=== PATIENT | male | born 1980 | race African-American/Black ===

== ENCOUNTER 2017-01-26 16:05 | Emergency (ER) | payer OTHER ==
[~2017-01-26 16:05] MED LIST: AUGM500T7 PO; CYCL-36 PO; HYDR12.56 PO; IBUP-238 PO; LORT7.5T3 PO; SOMA250T OR; Z.0.NO CURRENT MEDS
[2017-01-26 16:06] VITALS: BP 156/77; PULSE 84; RESP 20; TEMP 97.8; O2SAT 100
[2017-01-26] MEDS ORDERED: LISI20TA PO (18:18)
[2017-01-26] MEDS ORDERED: PROT40TA PO (18:23)
[2017-01-26 18:31] VITALS: BP 148/75; PULSE 89; RESP 18; O2SAT 98
[2017-01-26] MEDS ORDERED: SODIUM CHLOR 0.9% 1000 ML INJ 1,000 ML IV SCH (18:31)
--- NOTE | 2017-01-26 18:33 | PD ---
HPI Chief Complaint: GI Complaint Time Seen by Provider: 18:33 Travel History International Travel<30 days: No Contact w/Intl Traveler<30days: No Traveled to known affect area: No History of Present Illness HPI 36-year-old male with a history of hypertension, GERD presents to the emergency department for evaluation of worsening rectal pain for 2 months. 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 States that he saw Dr. Barker about one month ago for this complaint and was told that he had a fissure and would need surgery. States that he has not followed up with him since and has not scheduled any sort of procedure because of insurance constraints. States he was told this could become an abscess and he is worried this has occurred as the pain has worsened. The patient states that he has a sharp and throbbing pain at his rectum constantly. Pain is aggravated with bowel movements. States that he sometimes has bright red blood with bowel movements as well. States that today the pain significantly worsened and is now radiating to his perineum and testicles. He complains of nausea but no vomiting. He denies any fever, chills, chest pain, shortness of breath, abdominal pain, dysuria, diarrhea, constipation. Denies any prior abdominal surgeries. No other complaints. PFSH Past Medical History Asthma: Yes (CHILDHOOD) Cardiovascular Problems: Yes (HTN) Diminished Hearing: No Gastrointestinal Disorders: Yes Glaucoma: Yes (BOTH EYES) Past Surgical History Surgical History: No Previous Surgery Social History Alcohol Use: No Tobacco Use: Yes (ocassionally) Substance Use: No (pt denies) Allergies-Medications (Allergen,Severity, Reaction): Coded Allergies: Sulfa (Verified Allergy, Severe, rash, 01/26/17) Promethazine (Verified Allergy, Unknown, swelling, 01/26/17) Reported Meds & Prescriptions Reported Meds & Active Scripts Active Lortab (Hydrocodone-Acetaminophen) 5-325 Mg Tab 1 Tab PO Q6H PRN Lortab (Hydrocodone-Acetaminophen) 5-325 Mg Tab 1 Tab PO Q6H PRN Lidocaine Rectal 5 % Cream 1 Applic RECTAL DAILY PRN Anusol-Hc Supp (Hydrocortisone Supp) 25 Mg Supp 25 Mg RECTAL BID Anusol-Hc Rectal (Hydrocortisone Rectal) 2.5% Cream 1 Applic RECTAL Q6H PRN Reported Protonix (Pantoprazole Sodium) 40 Mg Tab 40 Mg PO DAILY Lisinopril-Hctz 20-12.5 Mg Tab 1 Tab PO DAILY Review of Systems Except as stated in HPI: all other systems reviewed are Neg Physical Exam Narrative GENERAL: Well-nourished and well-developed pleasant male patient in no acute distress but in a moderate amount of discomfort. SKIN: Warm and dry. HEAD: Normocephalic and atraumatic. EYES: No injection, drainage, or hyphema noted. PERRLA. EOMI. ENT: No nasal drainage noted. Oropharynx is clear. NECK: Supple and the trachea is midline. CARDIOVASCULAR: Regular rate and rhythm. RESPIRATORY: Breath sounds are equal bilaterally with no accessory muscle use, wheezing, rhonchi, or crackles. GASTROINTESTINAL: Abdomen is soft, non-tender, and nondistended. RECTAL EXAM: Difficult to perform as patient has severe pain in his rectum and anus. I did not see any external fissures or hemorrhoids on exam. I was able to perform a limited digital rectal exam extending only about 2 inches deep as the patient was experiencing severe pain. With this limited exam I did not palpate any masses, tracts or stool. Performed in the presence of Meri WONG. MUSCULOSKELETAL: No obvious deformities, swelling, cyanosis, or ecchymosis is present throughout the upper and lower extremities. Patient has full range of motion without any signs of neurovascular compromise. NEUROLOGICAL: Awake, alert, and oriented. Normal speech and gait. Cranial nerves are grossly intact. Data Data Last Documented VS Vital Signs Date Time Temp Pulse Resp B/P Pulse Ox O2 Delivery O2 Flow Rate FiO2 01/26/17 18:34 17 99 Room Air 01/26/17 18:31 89 148/75 01/26/17 16:06 97.8 Orders Complete Blood Count With Diff (01/26/17 18:31) Comprehensive Metabolic Panel (01/26/17 18:31) Lipase (01/26/17 18:31) Prothrombin Time / Inr (Pt) (01/26/17 18:31) Act Partial Throm Time (Ptt) (01/26/17 18:31) Urinalysis - C+S If Indicated (01/26/17 18:31) Ct Abd/Pel W Iv Contrast(Rout) (01/26/17 18:31) Iv Access Insert/Monitor (01/26/17 18:31) Ecg Monitoring (01/26/17 18:31) Oximetry (01/26/17 18:31) Morphine Inj (Morphine Inj) (01/26/17 18:45) Ondansetron Inj (Zofran Inj) (01/26/17 18:45) Sodium Chlor 0.9% 1000 Ml Inj (Ns 1000 M (01/26/17 18:31) Sodium Chloride 0.9% Flush (Ns Flush) (01/26/17 18:45) Oral Contrast - Adult (01/26/17 18:38) Diatrizoate Liq ( Gastroview Liq) (01/26/17 18:47) Diatrizoate Liq ( Gastrojayleen Liq) (01/26/17 18:48) Iohexol 350 Inj (Omnipaque 350 Inj) (01/26/17 20:09) Oxycodone-Acetamin 5-325 Mg (Percocet (01/26/17 21:00) Labs Laboratory Tests Test 01/26/17 01/26/17 18:40 19:40 White Blood Count 11.6 TH/MM3 Red Blood Count 4.94 MIL/MM3 Hemoglobin 14.3 GM/DL Hematocrit 43.6 % Mean Corpuscular Volume 88.4 FL Mean Corpuscular Hemoglobin 28.9 PG Mean Corpuscular Hemoglobin 32.7 % Concent Red Cell Distribution Width 14.7 % Platelet Count 237 TH/MM3 Mean Platelet Volume 8.2 FL Neutrophils (%) (Auto) 65.1 % Lymphocytes (%) (Auto) 26.8 % Monocytes (%) (Auto) 6.9 % Eosinophils (%) (Auto) 0.7 % Basophils (%) (Auto) 0.5 % Neutrophils # (Auto) 7.5 TH/MM3 Lymphocytes # (Auto) 3.1 TH/MM3 Monocytes # (Auto) 0.8 TH/MM3 Eosinophils # (Auto) 0.1 TH/MM3 Basophils # (Auto) 0.1 TH/MM3 CBC Comment DIFF FINAL Differential Comment Prothrombin Time 11.0 SEC Prothromb Time International 1.0 RATIO Ratio Activated Partial 29.4 SEC Thromboplast Time Sodium Level 143 MEQ/L Potassium Level 3.5 MEQ/L Chloride Level 105 MEQ/L Carbon Dioxide Level 30.8 MEQ/L Anion Gap 7 MEQ/L Blood Urea Nitrogen 10 MG/DL Creatinine 1.16 MG/DL Estimat Glomerular Filtration 87 ML/MIN Rate Random Glucose 60 MG/DL Calcium Level 9.4 MG/DL Total Bilirubin 0.6 MG/DL Aspartate Amino Transf 9 U/L (AST/SGOT) Alanine Aminotransferase 20 U/L (ALT/SGPT) Alkaline Phosphatase 70 U/L Total Protein 7.4 GM/DL Albumin 4.2 GM/DL Lipase 845 U/L Urine Color YELLOW Urine Turbidity CLEAR Urine pH 5.5 Urine Specific [place] 1.020 Urine Protein NEG mg/dL Urine Glucose (UA) NEG mg/dL Urine Ketones NEG mg/dL Urine Occult Blood NEG Urine Nitrite NEG Urine Bilirubin NEG Urine Urobilinogen LESS THAN 2.0 MG/DL Urine Leukocyte Esterase NEG Urine RBC LESS THAN 1 /hpf Urine WBC 1 /hpf Microscopic Urinalysis Comment CULT NOT INDICATED MDM Medical Decision Making Medical Screen Exam Complete: Yes Emergency Medical Condition: Yes Differential Diagnosis Fissure versus abscess versus proctitis versus proctosigmoiditis versus crohn's versus other Narrative Course 36-year-old male with a history of rectal pain for 2 months that has been worsening. Patient is afebrile, vital signs are stable. Patient is in a moderate amount of pain. There is some concern for fissure or abscess. IV access was obtained, labs been drawn and sent. CT of the abdomen and pelvis with IV and oral contrast has been ordered and is pending. Patient is administered morphine 4 mg IV and Zofran 4 mg IV. CBC shows slightly elevated white blood count of 11.6, otherwise unremarkable. CMP is unremarkable. Lipase is elevated at 845. The patient has no left upper quadrant pain and is tolerating oral intake without any difficulty. I don't think this represents a true pancreatitis. Coags are unremarkable. Urinalysis unremarkable. CT of the abdomen and pelvis shows mild nonspecific wall thickening of the lower rectum. No perceptible acute inflammatory changes. Nonspecific distention of the stomach and proximal duodenum also without perceptible inflammatory changes or mass. I discussed all findings with the patient. He will be discharged home with prescriptions for Anusol suppository and cream as well as topical lidocaine and some oral pain medication. I discussed with him proper bowel regimens to ensure that he is not experiencing any constipation. I discussed with the patient that he will need to follow-up with a batch tank controller for further evaluation of these nonspecific findings. Patient verbalizes understanding and agreement with treatment plan. I discussed the case with my attending physician Dr. Reddy who is aware of the patients history, physical examination findings, and treatment plan. 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 If you're experiencing any constipation he can take [id number] MiraLAX as directed on the box. Use suppositories and topicals as prescribed. Take Lortab as prescribed. Do not take with alcohol or while driving. Follow-up with a batch tank controller. Return to the ED for any acute worsening of symptoms. Med/Other Pt SpecificInfo: Prescription(s) given Scripts Hydrocodone-Acetaminophen (Lortab)5-325 Mg Tab1 Tab PO Q6H PRN (PAIN) #14 TAB Ref 0 Prov:Liberty Gibbs MD 01/26/17 Lidocaine Rectal 5 % Cream1 Applic RECTAL DAILY PRN (PAIN) #1 TUBE Ref 0 Prov:Abbe Reddy MD 01/26/17 Hydrocortisone Supp (Anusol-Hc Supp)25 Mg Supp25 Mg RECTAL BID #24 SUPP Prov:Abbe Reddy MD 01/26/17 Hydrocortisone Rectal (Anusol-Hc Rectal)2.5% Cream1 Applic RECTAL Q6H PRN ( ITCHING/INFLAMMATION) #30 GM Ref 0 Prov:Abbe Reddy MD 01/26/17 Disposition: 01 DISCHARGE HOME Condition: Stable Kacey Case Jan 26, 2017 18:33 Kacey Case Jan 26, 2017 18:33
[2017-01-26 18:34] VITALS: RESP 17; O2SAT 99
[2017-01-26] MEDS ORDERED: SODIUM CHLORIDE 0.9% FLUSH 10 ML FLUSH IV FLUSH PRN (18:45)
[2017-01-26] MEDS ORDERED: ONDANSETRON HCL 4 MG/2 ML VIAL IVP ONE (18:45)
[2017-01-26] MEDS ORDERED: MORPHINE SULFATE 4 MG/ML INJ IV PUSH ONE (18:45)
[2017-01-26] MEDS ORDERED: DIATRIZOATE MEGLUM/DIATRIZOATE SOD 9 ML CUP ONE ×2 (18:47→18:48)
[2017-01-26 19:05] LABS: AUTOMATED NEUTROPHIL # 7.5 TH/MM3 (1.8-7.7); BASOPHIL # 0.1 TH/MM3 (0-0.2); BASOPHIL % 0.5 % (0.0-2.0); EOSINOPHIL # 0.1 TH/MM3 (0-0.4); EOSINOPHIL % 0.7 % (0.0-4.0); HEMATOCRIT 43.6 % (39.0-51.0); HEMO FLAGS DIFF FINAL; LYMPH % 26.8 % (9.0-44.0); LYMPHOCYTE # 3.1 TH/MM3 (1.0-4.8); MEAN CELL VOLUME 88.4 FL (80.0-100.0); MEAN CORPUSCULAR HEMOGLOBIN 28.9 PG (27.0-34.0); MEAN CORPUSCULAR HGB CONC 32.7 % (32.0-36.0); MONO % 6.9 % (0.0-8.0); NEUT % 65.1 % (16.0-70.0); PLATELET COUNT 237 TH/MM3 (150-450); RED BLOOD COUNT 4.94 MIL/MM3 (4.50-5.90); RED CELL DISTRIBUTION WIDTH 14.7 % (11.6-17.2); WHITE BLOOD COUNT 11.6 TH/MM3 (4.0-11.0)
[2017-01-26 19:15] LABS: APTT (PATIENT) 29.4 SEC (24.3-30.1)
[2017-01-26 19:34] LABS: ALT (GPT) 20 U/L (12-78); ANION GAP 7 MEQ/L (5-15); AST (GOT) 9 U/L (15-37); BICARBONATE 30.8 MEQ/L (21.0-32.0); BLOOD UREA NITROGEN 10 MG/DL (7-18); CHLORIDE 105 MEQ/L (98-107); GLOMERULAR FILTRATION RATE 87 ML/MIN (>89); POTASSIUM 3.5 MEQ/L (3.5-5.1); SODIUM (NA) 143 MEQ/L (136-145)
[2017-01-26 19:37] LABS: ALKALINE PHOSPHATASE 70 U/L (45-117); TOTAL BILIRUBIN ADULT 0.6 MG/DL (0.2-1.0)
[2017-01-26] MEDS ORDERED: IOHEXOL 350 MG/ML 10 ML VIAL (for RAD DIAG) IV ONE (20:09)
--- NOTE | 2017-01-26 20:20 | RADRPT ---
EXAM DATE/TIME: 01/26/2017 20:02 [facility] COMPARISON: No previous studies available for comparison. INDICATIONS : Rectal pain past month. IV CONTRAST: 95 cc Omnipaque 350 (iohexol) IV ORAL CONTRAST: Prescribed oral contrast ingested. RADIATION DOSE: 14.76 CTDIvol (mGy) MEDICAL HISTORY : Cardiovascular disease. Hypertension. Asthma SURGICAL HISTORY : None. ENCOUNTER: Initial ACUITY: 1 month PAIN SCALE: 5/10 LOCATION: rectum TECHNIQUE: Volumetric scanning of the abdomen and pelvis was performed. Using automated exposure control and ad justment of the mA and/or kV according to patient size, radiation dose was kept as low as reasonably achievable to obtain optimal diagnostic quality images. FINDINGS: LOWER LUNGS: The visualized lower lungs are clear. LIVER: Homogeneous density without lesion. There is no dilation of the biliary tree. No calcified gallston es. SPLEEN: Normal size without lesion. PANCREAS: Within normal limits. KIDNEYS: Normal in size and shape. There is no mass, stone or hydronephrosis. ADRENAL GLANDS: Within normal limits. VASCULAR: There is no aortic aneurysm. BOWEL/MESENTERY: There is nonspecific distention of the stomach and first portion of the duodenum. I don't see a mass. Distally, mild wall thickening seen in the lower rectum without perceptible associated inflammatory changes. No free or loculated fluid. No free air. ABDOMINAL WALL: Within normal limits. RETROPERITONEUM: There is no lymphadenopathy. BLADDER: No wall thickening or mass. REPRODUCTIVE: Within normal limits. INGUINAL: There is no lymphadenopathy or hernia. MUSCULOSKELETAL: No acute bony abnormality demonstrated. CONCLUSION: 1. Mild, nonspecific wall thickening of the lower rectum. No perceptible acute inflammatory changes. 2. Nonspecific distention of the stomach and proximal duodenum, also without perceptible inflammatory changes or mass. Rodrigo Garcia MD on January 26, 2017 at 20:14 Board Certified Radiologist. This report was verified electronically.
[2017-01-26 20:29] LABS: BLOOD, URINE NEG (NEG); GLUCOSE,URINE NEG (NEG); KETONE, URINE NEG (NEG); NITRITE,URINE NEG (NEG); PH, URINE 5.5 (5.0-8.5); URINE COLOR YELLOW (YELLW/STRAW)
[2017-01-26 20:34] LABS: COMMENT (UR) CULT NOT INDICATED; CULTURE IF INDICATED CULT NOT INDICATED
[2017-01-26] MEDS ORDERED: HYDR2.5%T RECTAL (20:40)
[2017-01-26] MEDS ORDERED: LIDO4CRE5 RECTAL (20:40)
[2017-01-26] MEDS ORDERED: ANUS25SU RECTAL (20:40)
[2017-01-26] MEDS ORDERED: HYDR-3533 PO ×2 (20:40→20:44)
[2017-01-26] MEDS ORDERED: oxyCODONE/ACETAMINOPHEN 5 MG/325 MG TAB PO ONE (21:00)
== END 2017-01-26 21:08 | disposition home or self-care (01) ==
LOC: NEPE 16:05
DX: K62.89 Other specified diseases of anus and rectum (principal); I10 Essential (primary) hypertension; Z72.0 Tobacco use
CPT/HCPCS: 74177; 80053; 81001; 83690; 85025; 85610; 85730; 96374; 96375; 99285; J2270; J2405; J7030; Q9963; Q9967